=== PATIENT | male | born 2000 | race African-American/Black ===

== ENCOUNTER 2022-07-03 05:50 | Emergency (ER) | payer SELFPAY ==
[~2022-07-03] VITALS: Ht 175.3 cm; Wt 72.6 kg
[2022-07-03] MEDS ORDERED: IBUPROFEN 600 MG TAB PO STA ×2 (06:28→06:51)
[2022-07-03] MEDS ORDERED: PREDNISONE 20 MG TAB PO ONE (06:30)
[2022-07-03] MEDS ORDERED: IBUPROFEN 600 MG TAB ONE (06:38)
[2022-07-03] MEDS ORDERED: PREDNISONE 20 MG TAB ONE (06:38)
[2022-07-03] MEDS ORDERED: KETOROLAC TROMETHAMINE 30 MG/ML VIAL IM STA (06:49)
[2022-07-03] MEDS ORDERED: PREDNISONE20 MG PO (07:12)
[2022-07-03] MEDS ORDERED: NAPROSYN500 MG PO (07:12)
[2022-07-03] MEDS ORDERED: CYCLOBENZAPRINE10 MG PO (07:13)
[2022-07-03 07:38] VITALS: BP 123/58; PULSE 60; RESP 18; TEMP 98.9; O2SAT 100
== END 2022-07-03 07:38 | disposition home or self-care (01) ==
LOC: FSED 06:03
DX: M54.12 Radiculopathy, cervical region (principal); M26.621 Arthralgia of right temporomandibular joint; M79.622 Pain in left upper arm; F17.210 Nicotine dependence, cigarettes, uncomplicated
CPT/HCPCS: 72050; 99283; J7512

== ENCOUNTER 2022-07-12 05:46 | Emergency (ER) | payer SELFPAY ==
[~2022-07-12] VITALS: Ht 175.3 cm; Wt 72.6 kg
[~2022-07-12 05:46] MED LIST: CYCLOBENZAPRINE10 MG PO; NAPROSYN500 MG PO; PREDNISONE20 MG PO
[2022-07-12] MEDS ORDERED: ONDANSETRON HCL INJ 2MG/ML 2ML 2 MG/ML VIAL IV STA (06:20)
[2022-07-12] MEDS ORDERED: FAMOTIDINE 20 MG/2 ML VIAL IV STA (06:20)
[2022-07-12] MEDS ORDERED: FAMOTIDINE 20 MG/2 ML VIAL IV ONE (06:22)
[2022-07-12] MEDS ORDERED: SODIUM CHLORIDE 0.9% 1000ML 1,000 ML ONE (06:22)
[2022-07-12] MEDS ORDERED: DIPHENHYDRAMINE HCL INJ 50 MG/ML VIAL ONE (06:22)
[2022-07-12] MEDS ORDERED: METHYLPREDNISOLONE SOD SUCC 125 MG/2ML VIAL ONE (06:26)
[2022-07-12] MEDS ORDERED: ONDANSETRON HCL INJ 2MG/ML 2ML 2 MG/ML VIAL ONE (06:26)
[2022-07-12] MEDS ORDERED: METHYLPREDNISOLONE SOD SUCC 125 MG/2ML VIAL IV ONE (06:30)
[2022-07-12] MEDS ORDERED: SODIUM CHLORIDE 0.9% 1000ML 1,000 ML IV SCH (06:30)
[2022-07-12] MEDS ORDERED: DIPHENHYDRAMINE HCL INJ 50 MG/ML VIAL IV ONE (06:30)
[2022-07-12] MEDS ORDERED: PREDNISONE20 MG PO (07:43)
[2022-07-12] MEDS ORDERED: PEPCID20 MG PO (07:43)
[2022-07-12 07:44] VITALS: O2SAT 100
[2022-07-12] MEDS ORDERED: EPINEPHRIN0.3 MG/0.3 IM (08:03)
== END 2022-07-12 08:17 | disposition home or self-care (01) ==
LOC: FSED 05:52
DX: T78.3XXA Angioneurotic edema, initial encounter (principal)
CPT/HCPCS: 99283; J1200; J2405; J2930; J7030

== ENCOUNTER 2023-01-12 06:32 | Emergency (ER) | payer SELFPAY ==
[~2023-01-12] VITALS: Ht 175.3 cm; Wt 67.6 kg
[~2023-01-12 06:32] MED LIST changes: +EPINEPHRIN0.3 MG/0.3 IM; +PEPCID20 MG PO
[2023-01-12 06:42] VITALS: O2SAT 100
[2023-01-12] MEDS ORDERED: IBUPROFEN200 MG PO (07:21)
[2023-01-12] MEDS ORDERED: ACYCLOVIR400 MG PO (07:21)
== END 2023-01-12 08:24 | disposition home or self-care (01) ==
LOC: FSED 07:08
DX: A60.00 Herpesviral infection of urogenital system, unspecified (principal); R30.0 Dysuria; F17.210 Nicotine dependence, cigarettes, uncomplicated
CPT/HCPCS: 81003; 99283